=== PATIENT | female | born 1980 | race Caucasian/White ===

== ENCOUNTER 2020-10-29 11:36 | Emergency (ER) | payer MEDICAID ==
[~2020-10-29] VITALS: Ht 157.5 cm; Wt 64.4 kg
[2020-10-29 11:38] VITALS: Ht 157.5 cm; Wt 64.4 kg
[2020-10-29 12:10] VITALS: BP 136/87
== END 2020-10-29 12:10 | disposition home or self-care (01) ==
LOC: ED 11:36
DX: U07.1 COVID-19 (principal); B34.9 Viral infection, unspecified
CPT/HCPCS: U0003